=== PATIENT | female | born 1985 | race Hispanic/Latino ===

== ENCOUNTER 2018-02-22 08:15 | Inpatient (IN) | payer BC ==
[2018-02-22 20:54] VITALS: BMI 30.3
[2018-02-22] MEDS ORDERED: Lidocaine 1% (PF) 30 ML VIAL SC PRN (21:09)
[2018-02-22] MEDS ORDERED: HYDROcodone/Acetaminophen 5/325 mg Tablet PO PRN ×2 (21:09)
[2018-02-22] MEDS ORDERED: Misoprostol 200 MCG TAB PR PRN (21:09)
[2018-02-22] MEDS ORDERED: Methylergonovine 0.2 MG/ML VIAL IM PRN (21:09)
[2018-02-22] MEDS ORDERED: Ibuprofen 800 MG TAB PO PRN (21:09)
[2018-02-22] MEDS ORDERED: Promethazine HCl 25 MG/ML VIAL IM PRN (21:11)
[2018-02-22] MEDS ORDERED: Ondansetron HCl/PF 4 MG/2 ML Vial IVP PRN (21:11)
[2018-02-22] MEDS ORDERED: DISCONTINUE ALL PREVIOUS NARCOTICS FS SCH (21:15)
[2018-02-22] MEDS ORDERED: Bupivacaine 0.5% 20 ML, fentaNYL Citrate/PF 400 MCG in Sodium Chloride 0.9% 72 ML EPIDURAL SCH (21:15)
[2018-02-22] MEDS ORDERED: Lactated Ringer's 1,000 ML IV SCH (21:15)
[2018-02-22 21:21] LABS: Hemoglobin 11.7 g/dL (12.0-16.0); Mean Corpuscular HGB CONC 34.4 g/dL (32.0-36.0); Mean Corpuscular Hemoglobin 29.4 pg (27.0-31.0); Mean Corpuscular Volume 85.5 fl (81.0-99.0); Mean Platelet Volume 7.7 fL (7.4-10.4); Platelet Count 209 thou/uL (130-400); RBC Distribution Width 13.8 % (11.5-14.5); Red Blood Cell (RBC) Count 3.97 mill/uL (4.20-5.40); White Blood Cell (WBC) Count 13.1 thou/uL (4.8-10.8)
[2018-02-22] MEDS ORDERED: diphenhydrAMINE 50 MG/ML VIAL IVP PRN (21:57)
[2018-02-22] MEDS ORDERED: Lactated Ringer's 500 ML IV PRN (21:57)
[2018-02-22] MEDS ORDERED: Naloxone HCl 0.4 mg/ml Vial IVP PRN (21:57)
[2018-02-22] MEDS ORDERED: Hydrocerin (Eucerin) Cream 120 gm Jar TOP PRN (21:57)
[2018-02-22] MEDS ORDERED: ePHEDrine/0.9% NaCl/PF SYRINGE 50 mg/10 ml SLOW IVP PRN (21:57)
[2018-02-22 21:59] LABS: Syphilis Antibody Nonreactive (Nonreactive); Syphilis Antibody Index 0.03 S/CO (<1.00 Non-Reactive)
[2018-02-22] MEDS ORDERED: Fentanyl 4mcg/Marcaine 0.1% Cassette 100 ML EPIDURAL SCH (22:00)
[2018-02-22] MEDS ORDERED: Communication Order-Pharmacy FS SCH (22:00)
--- NOTE | 2018-02-23 00:06 | PDOC.OPDEL ---
OB Operative/Delivery Note Delivery Dr/Surgeon: Apolinar Assist: n/a Pre-Delivery Diagnosis: active labor Procedure/Post Delivery Dx: spontaneous vaginal delivery Weeks gestation: 39 Anesthesia: epidural - Findings A Sex: female - 1 min: 8 - 5 min: 9 - Additional Findings/Plan Placenta delivered: spontaneous Repaired Obstetrical Laceration: 1st degree (repaired with 2-0 vicryl excellent hemostasis) Estimated blood loss: 300 Compilations/Other Findings: Baby delivered straight OP. uterine atony noted fundal massage, pitocin given, tone improved, cytotec 800mcg pr placed. Post delivery plan: routine recovery
[2018-02-23] MEDS: LR / Pitocin 40 units/1000 ml 1,000 ML IV PRN ×2 (00:14→01:40)
[2018-02-23 00:31] LABS: Hep B Surf Ag Non-Reactive S/CO (NonReactive)
[2018-02-23] MEDS ORDERED: Bisacodyl 10 MG SUPP PR PRN (02:21)
[2018-02-23] MEDS ORDERED: HYDROcodone/Acetaminophen 5/325 mg Tablet PO PRN ×2 (02:21)
[2018-02-23] MEDS ORDERED: Ondansetron HCl/PF 4 MG/2 ML Vial IVP PRN (02:21)
[2018-02-23] MEDS ORDERED: diphenhydrAMINE 25 MG CAP PO PRN (02:21)
[2018-02-23] MEDS ORDERED: Lanolin Ointment 7 GM TUBE TOP PRN (02:21)
[2018-02-23] MEDS ORDERED: Milk Of Magnesia 30 ML UDCUP PO PRN (02:21)
[2018-02-23] MEDS ORDERED: Promethazine HCl 25 MG/ML VIAL IM PRN (02:21)
[2018-02-23] MEDS ORDERED: Preparation H Ointment 28 GM TUBE PR PRN (02:21)
[2018-02-23] MEDS ORDERED: Benzocaine/Menthol 20-0.5% 60 ML CAN TOP PRN (02:21)
[2018-02-23] MEDS ORDERED: LR / Pitocin 40 units/1000 ml 1,000 ML IV SCH (02:21)
[2018-02-23] MEDS ORDERED: Zolpidem Tartrate 5 MG TAB PO PRN (02:21)
[2018-02-23] MEDS ORDERED: Adacel (T-DAP) 0.5 ML VIAL IM ONE (02:45)
[2018-02-23] MEDS: Ferrous Sulfate 325 MG TAB PO SCH ×2 (07:35→17:33)
[2018-02-23] MEDS: Ibuprofen 800 MG TAB PO SCH ×3 (09:05→21:34)
[2018-02-23] MEDS: Prenatal Vitamin 1 TAB PO SCH (09:05)
[2018-02-23] MEDS: Docusate Calcium (SURFAK) 240 MG CAP PO SCH ×2 (09:05→21:34)
--- NOTE | 2018-02-23 14:02 | PDOC.PP ---
Post Progress Note Post Day #: 1 PO intake tolerated: yes Flatus: yes Ambulation: yes Vital Signs (12 hours) Temp Pulse Resp BP 02/23/18 12:40 98.1 F 81 20 02/23/18 11:43 98.1 F 81 20 106/55 L 02/23/18 08:08 98.9 F 83 20 99/57 L 02/23/18 05:00 98.8 F 86 20 107/55 L 02/23/18 04:00 98.9 F 78 20 108/63 02/23/18 02:50 99.1 F 76 18 118/60 02/23/18 02:21 99.0 F 80 18 111/61 Weight Weight 188 lb - Physical Examination General: NAD Cardiovascular: RRR Respiratory: non-labored breathing Abdominal: no distention, appropriately TTP Fundus firm & at: umb Psychiatric: normal affect Result Diagrams: 02/22/18 21:05 Additional Labs: Post Labs Hep Bs Antigen Non-Reactive S/CO (NonReactive) 02/22/18 21:05 (1) Term delivered Code(s): O80 - ENCOUNTER FOR FULL-TERM UNCOMPLICATED DELIVERY Status: Acute - Assessment/Plan PPD1 s/p TSVD, uncomplicated No issues Rh pos RImm Home tomorrow
--- NOTE | 2018-02-23 15:04 | PDOC.LDHP ---
Labor and Delivery H&P Chief complaint: contractions HPI: 32yo at 39w5d with painful contractions. No LOF VB. Good FM. Current gestational age (weeks): 39 Due date: 02/24/18 Dating criteria: last menstrual period Grav: 2 Para: 1 Current complications: gestational diabetes (diet controlled) Abnormal US findings: No Current medications: pre-skye vitamins Previous surgical history: none Allergies/Adverse Reactions: Allergies Allergy/AdvReac Type Severity Reaction Status Date / Time No Known Allergies Allergy Verified 02/22/18 20:52 Social history: none - Physical Exam Vital signs reviewed and normal: yes General: NAD, breathing through contractions Heart: RRR Lungs: CTAB Abdomen: gravid Extremeties: no edema FHT: category 1
[2018-02-24] MEDS: Ibuprofen 800 MG TAB PO SCH ×2 (06:18→14:08)
[2018-02-24 08:05] VITALS: BP 122/66; TEMP 97.9
--- NOTE | 2018-02-24 08:59 | DIS ---
ADMITTING DIAGNOSIS: Labor with gestational diabetes. DISCHARGE DIAGNOSES: Labor with gestational diabetes. PROCEDURE: Term spontaneous vaginal delivery. HOSPITAL COURSE: The patient is a 32-year-old female who presented to Labor and Delivery in active l abor and was managed by her primary OB, Dr. Jiang. She subsequently had a term spontaneous vaginal delivery with a first degree laceration and was transferred to for recovery. The patient 's course has been uncomplicated. Today, she is reporting she is doing well with decrease d lochia, voiding on her own, having good pain control. PHYSICAL EXAMINATION: VITAL SIGNS: Today blood pressure is 118/61, temperature 98.4, pulse is 76, respiratory rate 18, sat ting 97% on room air. GENERAL: She appears to be in no acute distress. She is alert and oriented, cooperative and pleasan t to interact with. HEENT: Normocephalic, atraumatic. ABDOMEN: Fundus is firm. EXTREMITIES: Nontender with minimal edema. The patient desires discharge home today. She will be discharged with instructions to take ibuprofen over the counter as needed for pain. She has been given instruction to seek medical attention shoul d she experience fever, increasing pain or bleeding. Otherwise, she is to see Dr. Jiang in 6 weeks for routine visit.
[2018-02-24] MEDS: Ferrous Sulfate 325 MG TAB PO SCH (09:03)
[2018-02-24] MEDS: Docusate Calcium (SURFAK) 240 MG CAP PO SCH (10:16)
[2018-02-24] MEDS: Prenatal Vitamin 1 TAB PO SCH (10:16)
== END 2018-02-24 14:31 | disposition home or self-care (01) | DRG 775 ==
LOC: L&D/OP 08:15 → L&D 21:03 → 3SW 02-23 02:17
PROVIDERS: ADMIT Student in an Organized Health Care Education/Training Program; ATTEND Student in an Organized Health Care Education/Training Program
PROC: 10E0XZZ Delivery of Products of Conception, External Approach (ICD-10-PCS; principal; 2018-02-22)
PROC: 0HQ9XZZ Repair Perineum Skin, External Approach (ICD-10-PCS; 2018-02-22)
DX: O24.420 Gestational diabetes mellitus in childbirth, diet controlled (principal); O70.0 First degree perineal laceration during delivery; Z37.0 Single live birth; Z3A.39 39 weeks gestation of pregnancy
CPT/HCPCS: 36416; 51702; 85027; 86780; 87340; 99285; J2001; J2210; J3010; J3490; J7050

== ENCOUNTER 2018-03-06 10:50 | Emergency (ER) | payer BC ==
[2018-03-06 11:36] LABS: #Eosinphils 0.1 thou/uL (0.0-0.7); #Lymphocytes 1.1 thou/uL (1.20-3.40); #Monocytes 0.4 thou/uL (0.11-0.59); #Neutrophils 8.3 thou/uL (1.40-6.50); %Basophils 0.1 % (0.0-1.0); %Eosinophils 1.1 % (0.0-10.0); %Lymphocytes 10.8 % (21.0-51.0); %Neutrophils 84.1 % (42.0-75.0); Hemoglobin 12.9 g/dL (12.0-16.0); Mean Corpuscular HGB CONC 32.5 g/dL (32.0-36.0); Mean Corpuscular Hemoglobin 28.8 pg (27.0-31.0); Mean Corpuscular Volume 88.8 fl (81.0-99.0); Mean Platelet Volume 7.4 fL (7.4-10.4); Platelet Count 264 thou/uL (130-400); RBC Distribution Width 13.3 % (11.5-14.5); Red Blood Cell (RBC) Count 4.46 mill/uL (4.20-5.40); White Blood Cell (WBC) Count 9.8 thou/uL (4.8-10.8)
[2018-03-06 14:31] LABS: Bilirubin Negative (Negative); Blood, Urine Large (Negative); Clarity CLEAR (Clear); Glucose, Urine (Dipstick) Negative (Negative); Leukocyte Trace (Negative); Nitrite Negative (Negative); Protein, Urine (Dipstick) 30 mg/dL (Neg-Trace); Specific Gravity, Urine 1.018 (1.002-1.036); pH, Urine 6.5 (5.0-9.0)
[2018-03-06 14:33] LABS: Pregnancy Test - Urine (BHCG) POSITIVE (Negative)
[2018-03-06 14:34] LABS: Bacteria/HPF None Seen HPF (None Seen); Hyaline Casts/LPF 0-3 HYALINE CAST LPF (0-3 Hyaline); Pathc Cast-AUWi Flag 0.43 (0-2.49); Pregu Control Background? CLEAR/WHITE (CLR/WHITE); Pregu Control Bar Appear? YES (CONTROL BAR); RBC/HPF GREATER THAN 50-TNTC HPF (0-3); Specific Gravity 1.018 (1.002-1.036); Squamous Epithelial 0-3 HPF (0-3); WBC/HPF 0-3 HPF (0-3)
== END 2018-03-06 15:24 | disposition home or self-care (01) ==
LOC: ERS 10:50
DX: O72.2 Delayed and secondary postpartum hemorrhage (principal)
CPT/HCPCS: 36415; 81003; 81015; 81025; 85025; 99284

== ENCOUNTER 2019-07-03 13:27 | Outpatient (CLI) | payer BC ==
--- NOTE | 2019-07-03 15:39 | RAD ---
Exam: Chest 2 views HISTORY:Short of breath Comparison: None FINDINGS: Lungs: No masses or consolidation. Cardiac silhouette:Mild enlargement Pulmonary vessels: Slight prominence of the perihilar vasculature Pleural Spaces: Clear Pneumothorax: None Osseous abnormalities: None of acuity. IMPRESSION: Findings which may relate to mild fluid overload. Correlate clinically. As indicated, imaging follow-up may be obtained.
== END 2019-07-03 13:28 | disposition home or self-care (01) ==
LOC: BICRAD 13:27
PROVIDERS: ATTEND Family Medicine
DX: R06.02 Shortness of breath (principal)
CPT/HCPCS: 71046; 80053; 82553; 83880; 84443; 84484; 85025; 85379

== ENCOUNTER 2021-12-31 09:54 | Outpatient (CLI) | payer BC | END 2021-12-31 09:55 | disposition home or self-care (01) | LOC: SCSMRI 09:54 | PROVIDERS: ATTEND Specialist | DX: M51.17 Intervertebral disc disorders with radiculopathy, lumbosacral region (principal); M47.27 Other spondylosis with radiculopathy, lumbosacral region; M47.26 Other spondylosis with radiculopathy, lumbar region | CPT/HCPCS: 72148 ==

== ENCOUNTER 2024-10-24 08:00 | Outpatient (CLI) | payer BC | END 2024-10-24 08:01 | disposition home or self-care (01) | LOC: BICMAMMO 08:00 | PROVIDERS: ATTEND Student in an Organized Health Care Education/Training Program | DX: R92.8 Other abnormal and inconclusive findings on diagnostic imaging of breast (principal) | CPT/HCPCS: 76642; 77066; G0279 ==